=== PATIENT | male | born 1970 ===

== ENCOUNTER → 2018-06-15 | Outpatient (REF) ==
[2018-06-15 17:26] LABS: THYROID STIMULATING HORMONE 0.986 uIU/mL (0.465-4.680)
[2018-06-15 17:34] LABS: PSA-TOTAL 1.94 ng/mL (0-4)
== END ==
LOC: ZLAB.WCH 16:24
PROVIDERS: Physician Assistant
DX: Z01.89 Encounter for other specified special examinations (principal)
CPT/HCPCS: G0103